=== PATIENT | female | born 1985 | race African-American/Black ===

== ENCOUNTER 2024-12-30 01:19 | Emergency (ER) | payer SELFPAY ==
[2024-12-30] VITALS (23 sets, daily range): BP systolic 100–125; BP diastolic 62–79; PULSE 70–94; RESP 13–22; TEMP 36.6; O2SAT 99–100
--- NOTE | ~2024-12-30 | XR_ITS ---
Examination: XR chest 1V portable Clinical History: shortness of breath Comparison: None Technique: Portable AP Findings: Heart size normal. Lungs clear. No acute bony abnormality. IMPRESSION: 1. No acute cardiopulmonary findings given portable technique. Reviewed, dictated and finalized at location [facility]
--- NOTE | ~2024-12-30 | CT_ITS ---
CT HEAD NON-CONTRAST Clinical History: syncope Comparison: CT brain 01/24/2015 Technique: Unenhanced axial images skull base to vertex Coronal, sagittal reformats CT images acquired with automatic exposure control for dose reduction DLP: 605 mGy-cm Findings: Sulci, ventricles: Unremarkable. No intracerebral hemorrhage. No evidence acute territorial infarct. No mass effect, midline shift. Empty sella, usually of no consequence unless hormonal abnormality. Bony calvarium intact. Visualized paranasal sinuses: Trace fluid or mucosal thickening right maxillary. Mastoid air cells: Clear. IMPRESSION: 1. No acute intracranial findings. Reviewed, dictated and finalized at location R. [facility]
--- NOTE | 2024-12-30 01:19 | ECG_ITS ---
Test Date: 2024-12-30 01:28:35 Measurements Intervals [place] Rate: 80 P: 53 VT: 199 QRS: 57 QRSD: 99 T: 31 QT: 376 QTc: 436 Interpretive Statements SINUS RHYTHM POSSIBLE RIGHT VENTRICULAR CONDUCTION DELAY [RSR (QR) IN V1/V2] NONSPECIFIC T-WAVE ABNORMALITY No previous ECG available for comparison Electronically Signed On 12-30-2024 17:53:45 INSTALLATION HELPER by Mary Christian M.D.
[2024-12-30] MEDS: SODIUM CHLORIDE 0.9% IV 1,000 ML 999 ML IV CONT (01:28)
--- NOTE | 2024-12-30 01:28 | ED.SYNCOPE ---
HPI - Syncope General Chief Complaint: Syncope Stated Complaint: SYNCOPE AND COLLAPSE History of Present Illness HPI narrative: This is a 39-year-old female with history of GERD who presents the ED for syncope. Patient states that she got up to go the bathroom and on her way back, she got dizzy and fell. She is unsure if she had her head. She believes that she did lose consciousness but is unsure if it was before after she hit her head. She states that her chest has been feeling ?funny? all day stating that she feels like she needs to catch her breath. Denies chest pain, shortness of breath at this time. States that she just feels tired right now. No recent illnesses that she is aware of. No new medications. Denies alcohol, illicit drug use. Related Data Allergies Allergy/AdvReac Type Severity Reaction Status Date / Time No Known Allergies Allergy Verified 12/30/24 01:25 Review of Systems Review of Systems: Gen.: Denies fevers or chills Eyes: Denies eye pain or visual change ENT: Denies congestion Respiratory: As per HPI CV: As per HPI GI: Denies abdominal pain nausea, emesis or diarrhea denies burning, urgency, frequency or hematuria Musculoskeletal: Denies back pain or muscle pain Neuro: Denies numbness, tingling, weakness or focal weakness Skin: Denies rash Except as documented, all other systems reviewed and negative Exam Narrative: APPEARANCE: No acute distress, nontoxic, resting in bed with eyes closed EYES: EOMI HEENT: Normocephalic, atraumatic, OMM RESPIRATORY: No respiratory distress Clear to auscultation bilaterally with no rhonchi wheezing or rales. CARDIOVASCULAR: Regular rate and rhythm without murmurs rubs or gallops. ABDOMINAL: Soft, nontender, nondistended, no rebound or guarding MUSCULOSKELETAl: Moves all extremities. No clubbing, cyanosis or edema. NEURO: Awake and alert. Following commands, soft spoken, no focal deficits SKIN:: Warm, dry. No rashes lesions or abrasions PSYCHIATRIC: Normal affect/mood, Course Vital Signs Vital signs: Vital Signs Temperature 97.9 F 12/30/24 01:17 Pulse Rate 83 12/30/24 01:17 Respiratory Rate 13 12/30/24 01:17 Blood Pressure 118/62 12/30/24 01:17 Pulse Oximetry 100 12/30/24 01:17 Oxygen Delivery Room Air 12/30/24 01:17 Temperature 97.9 F 12/30/24 01:17 Pulse Rate 90 12/30/24 04:32 Respiratory Rate 19 12/30/24 04:32 Blood Pressure 125/79 12/30/24 04:31 Pulse Oximetry 100 12/30/24 04:32 Oxygen Delivery Room Air 12/30/24 01:17 MDM - Syncope MDM Narrative Medical decision making narrative: 39-year-old female Presenting for syncope. On initial evaluation patient was in no acute distress afebrile, hemodynamic stable. Differentials include but are not limited to: Cardiogenic syncope, vasovagal syncope, orthostatic hypotension, PE, electrolyte abnormality hypoglycemia, seizure, CVA Notable exam findings: Heart and lungs clear. Abdomen soft and nontender. Notable lab findings: Mild anemia with hemoglobin at 10.9. CMP without significant abnormalities. Troponin negative. D-dimer negative. UA without UTI. Notable imaging findings: CT head showed no acute process. Patient reportedly had a 2nd sinus pause by EMS. On extensive review of the patient's rhythm strip here in the ED, she never had any significant pause. She did have occasional PACs with compensatory pauses but nothing beyond that. PE ruled out. No intracranial process. Patient may have had an arrhythmia that caused her symptoms given EMS report. Because of this, will arrange patient to have a Holter monitor placed. She was advised follow-up with her PCP in the next week for re-evaluation. Patient and family were agreeable to this plan. Given strict return precautions. Medical Records Attestation: I reviewed the patient's medical records. Lab Data Attestation: I reviewed the patient's lab results. 12/30/24 01:37 12/30/24 01:37 Labs: Lab Results 12/30/24 12/30/24 12/30/24 Range/Units 01:37 04:47 04:54 WBC 10.0 (4.5-10.0) K/mm3 RBC 3.55 L (4.2-5.4) M/mm3 Hgb 10.9 L (12.0-15.0) g/dL Hct 33.7 L (37.0-47.0) % MCV 94.9 (80-100) fl MCH 30.7 (26-34) pg MCHC 32.3 (32-36) g/dl RDW 11.9 (11.5-14.5) % Plt Count 227 (150-375) k/mm3 MPV 10.1 (7.4-10.4) fl Immature Gran % (Auto) 0.2 (0-0.5) % Neut % (Auto) 58.6 (45.5-73.1) % Lymph % (Auto) 34.0 (18.3-44.2) % [place] % (Auto) 5.7 (2.6-8.5) % Eos % (Auto) 1.1 (0-4.4) % Baso % (Auto) 0.4 (0.2-1.2) % Lymph # (Auto) 3.40 H (0.9-3.2) K/mm3 [place] # (Auto) 0.6 (0.1-0.6) K/mm3 Eos # (Auto) 0.1 (0-0.3) K/mm3 Baso # (Auto) 0.0 (0.0-0.1) K/mm3 Abs Immat Gran (auto) 0.02 (0.00-0.031) K/mm3 Absolute Neuts (auto) 5.9 (1.3-6.7) K/mm3 Absolute Nucleated RBC 0.000 (0.0-0.012) K/mm3 Nucleated RBC % 0.0 (0.0-0.2) % D-Dimer < 0.27 (<0.48) ug/mL Sodium 139 (137-145) mmol/L Potassium 3.7 (3.4-5.0) mmol/L Chloride 107 (98-107) mmol/L Carbon Dioxide 27 (22-30) mmol/L Anion Gap 5 (4-12) mmol/L BUN 9 (7-17) mg/dL Creatinine 0.78 (0.7-1.0) mg/dL Estim Creat Clear Calc 104 ml/min Estimated GFR > 60 (59 - ) Glucose 106 (65-110) mg/dL Lactic Acid 0.8 (0.7-2.0) mmol/L Calcium 8.5 (8.4-10.2) mg/dL Magnesium 2.1 (1.6-2.3) mg/dL Total Bilirubin 0.8 (0.2-1.3) mg/dL AST 24 (14-36) U/L ALT 19 (6-35) U/L Alkaline Phosphatase 116 (38-126) U/L Troponin I < 0.012 (0.000-0.034) ng/mL NT-Pro-B Natriuret Pep < 20 (19.9-100) pg/mL Total Protein 7.5 (6.3-8.2) g/dL Albumin 4.0 (3.5-5.1) g/dL Urine Color Yellow (Yellow) Urine Appearance Clear (Clear) Urine pH 5.5 (5.0-9.0) Ur Specific [place] 1.009 (1.001-1.035) Urine Protein Negative (Negative) mg/dL Urine Glucose (UA) Negative (Negative) mg/dL Urine Ketones Negative (Negative) mg/dL Ur Blood (Man) Negative (Negative) Urine Nitrate Negative (Negative) Urine Bilirubin Negative (Negative) Urine Urobilinogen 2.0 H (<2.0) mg/dL Leukocyte Esterase Rfl Negative (Negative) FREDERICK/UL Urine RBC 3-5 H (0-2) /hpf Urine WBC 0-5 (0-3) /hpf Ur Squamous Epith Cells Occasional (Few) /hpf Urine Bacteria 1+ H /hpf Urine Casts 0-2 POC Urine HCG, Qual Negative (Negative) Imaging Data Attestation: I personally reviewed and interpreted this imaging study as follows: Radiologist's impression: CT head: No intracranial hemorrhage, mass effect or edema. No evidence of acute cortical stroke. ECG Data EKG #1: Attestation: I personally reviewed and interpreted this ECG as follows: ECG completion date: 12/30/24 ECG completion time: 01:28 Interpretation: Normal sinus rhythm rate of 80, normal axis pr right ventricular conduction delay no acute ST or T-wave changes Discharge Plan Discharge Clinical Impression: Syncope Qualifiers: Syncope type: unspecified Qualified Code(s): R55 - Syncope and collapse Patient Disposition: Home Condition: Stable Instructions: Antibiotic Form, Syncope (ED) Additional Instructions: It is unclear what caused her syncope today but it may be due to an underlying arrhythmia. Because of this, you will need to wear a Holter monitor for 3 days. This will monitor for any a arrhythmias over that time. Follow-up with your PCP in the next week for re-evaluation. Return to the ED for any new or worsening symptoms. Patient Language: Mauritanian Other Ambulatory Orders: [place] holter monitor 3-7 day (Routine) Timeframe: 3 Days Location: Determined by Patient Ordered By: Chris Bragg Follow-up/Referrals: Anoop Plasencia MD [Physician, Family Practice] PHYSICIAN,ICE HANDLER [Primary Care Provider, Internal Medicine]
[2024-12-30 01:48] LABS: Hematocrit 33.7 % (37.0-47.0); Hemoglobin 10.9 g/dL (12.0-15.0); Immature Granulocyte Percent A 0.2 % (0-0.5); Lymphocytes Absolute Auto 3.40 K/mm3 (0.9-3.2); Mean Corpuscular HGB Conc 32.3 g/dl (32-36); Mean Corpuscular Hemoglobin 30.7 pg (26-34); Mean Corpuscular Volume 94.9 fl (80-100); Nucleated Red Blood Cells Absolute Auto 0.000 K/mm3 (0.0-0.012); Nucleated Red Blood Cells Perc 0.0 % (0.0-0.2); Platelet Count Result 227 k/mm3 (150-375); Red Blood Count 3.55 M/mm3 (4.2-5.4); White Blood Count 10.0 K/mm3 (4.5-10.0)
[2024-12-30 01:54] LABS: Alanine Aminotransferase 19 U/L (6-35); Albumin Level 4.0 g/dL (3.5-5.1); Alkaline Phosphatase 116 U/L (38-126); Anion Gap 5 mmol/L (4-12); Aspartate Amino Transferase 24 U/L (14-36); Bilirubin,Total 0.8 mg/dL (0.2-1.3); Blood Urea Nitrogen 9 mg/dL (7-17); Calcium 8.5 mg/dL (8.4-10.2); Carbon Dioxide 27 mmol/L (22-30); Chloride 107 mmol/L (98-107); Estimated CRCL calculation 104 ml/min; Estimated Glomerular Filt Rate > 60; Glucose 106 mg/dL (65-110); Magnesium 2.1 mg/dL (1.6-2.3); Potassium 3.7 mmol/L (3.4-5.0); Sodium 139 mmol/L (137-145); Total Protein 7.5 g/dL (6.3-8.2)
[2024-12-30 02:06] LABS: NT Pro B Type Natriuretic Pept < 20 pg/mL (19.9-100); Troponin I < 0.012 ng/mL (0.000-0.034)
[2024-12-30] MEDS: KETOROLAC 30 MG/ML VIAL (*BKC) IV PUSH (03:56)
[2024-12-30 04:56] LABS: BEDSIDEPREGUCG Negative (Negative)
[2024-12-30 05:44] LABS: Add Urine Microscopic? YES; Appearance Urine Clear (Clear); Glucose Urine UA Negative (Negative); Leukocyte Esterase Ur Negative LEU/UL (Negative); Nitrate Urine Negative (Negative); Non Pathogenic Casts 0-2; Specific Grav Ur 1.009 (1.001-1.035)
== END 2024-12-30 06:13 | disposition home or self-care (01) ==
PROVIDERS: Emergency Provider Student in an Organized Health Care Education/Training Program
DX: R55 Syncope and collapse (principal)
CPT/HCPCS: 36415; 70450; 71045; 80053; 81001; 81025; 83605; 83735; 83880; 84484; 85025; 85380; 93005; 96361; 96374; 99284; J1885; J7030